=== PATIENT | female | born 1990 | race African-American/Black ===

== ENCOUNTER 2018-09-16 08:20 | Emergency (ER) | payer SELFPAY ==
[~2018-09-16] VITALS: Ht 157.5 cm; Wt 108.9 kg
[2018-09-16] MEDS ORDERED: KETOROLAC 60 MG/2 ML VIAL. IM ONE (08:45)
[2018-09-16] MEDS ORDERED: KETOROLAC 30 MG/ML VIAL. ONE (08:57)
--- NOTE | 2018-09-16 09:18 | PHYS DOC ---
Past History Past Medical History: No Pertinent History Past Surgical History: No Surgical History Alcohol Use: None Drug Use: None Adult General Chief Complaint Chief Complaint: MECHANICAL FALL HPI HPI Patient is a 28 year old female who presents with pinning of a fall and injury to right side of chest and lower extremity. Patient states she slipped on icy steps of her apartment yesterday and had a fall from 44 and states that head injury or loss of consciousness. Patient states she landed on right side of her body and complaining of pain in right lower chest wall and right knee with contusion of right thigh that getting worse today and rated her pain 9/10. Patient complaining of shortness of breath because of pain in her chest and denies fever and chills, , other injuries. Review of Systems Review of Systems Constitutional: Denies fever or chills [] Eyes: Denies change in visual acuity, redness, or eye pain [] HENT: Denies nasal congestion or sore throat [] Respiratory: Denies cough or shortness of breath [] Cardiovascular: No additional information not addressed in HPI [] GI: Denies abdominal pain, nausea, vomiting, bloody stools or diarrhea [] : Denies dysuria or hematuria [] Musculoskeletal: Denies back pain , reports joint pain [] Integument: Denies rash or skin lesions [] Neurologic: Denies headache, focal weakness or sensory changes [] Endocrine: Denies polyuria or polydipsia [] All other systems were reviewed and found to be within normal limits, except as documented in this note. Current Medications Current Medications Current Medications Medications (Trade) Dose Ordered Sig/[facility] Start Time Stop Time Status Last Admin Dose Admin Ketorolac Tromethamine (Toradol 30mg Vial) 30 mg STK-MED ONCE 09/16/18 08:57 09/16/18 08:59 DC Ketorolac Tromethamine (Toradol Im) 60 mg 1X ONCE 09/16/18 08:45 09/16/18 08:46 UNV Allergies Allergies Allergies Coded Allergies Type Severity Reaction Last Updated Verified No Known Drug Allergies 09/16/18 No Physical Exam Physical Exam Constitutional: Well developed, well nourished, mild distress, non-toxic appearance, morbidly obese. [] HENT: Normocephalic, atraumatic, bilateral external ears normal, oropharynx moist, no oral exudates, nose normal. [] Eyes: PERRLA, EOMI, conjunctiva normal, no discharge. [] Neck: Normal range of motion, no tenderness, supple, no stridor. [] Cardiovascular:Heart rate regular rhythm, no murmur [] Lungs & Thorax: Right lower lateral chest wall tenderness without deformity or crepitation, Bilateral breath sounds clear to auscultation [] Abdomen: Bowel sounds normal, soft, no tenderness, no masses, no pulsatile masses. [] Skin: Warm, dry, no erythema, no rash. [] Back: No tenderness, no CVA tenderness. [] Extremities: Small area of contusion of right eye without deformity , no tenderness, no cyanosis, no clubbing, ROM intact, no edema. [] Neurologic: Alert and oriented X 3, normal motor function, normal sensory function, no focal deficits noted. [] Psychologic: Affect anxious, judgement normal, mood normal. [] Current Patient Data Vital Signs Vital Signs Date Time Temp Pulse Resp B/P (MAP) Pulse Ox O2 Delivery O2 Flow Rate FiO2 09/16/18 08:30 98.3 74 24 99 Room Air EKG EKG [] Radiology/Procedures Radiology/Procedures [address] [place] [id number] IMAGING REPORT Signed PATIENT: TESHA ALCARAZ ACCOUNT: [id number] : 1990 LOCATION: ER AGE: 28 SEX: F EXAM STATUS: REG ER ORD. PHYSICIAN: ZACHARY JULIAN MD REASON: faLL PROCEDURE: KNEE RIGHT 3V EXAM: Right knee, 3 views. HISTORY: Pain. Fall. COMPARISON: None. FINDINGS: 2 views of the right knee are obtained. There is no fracture, dislocation or subluxation. There is a small bone island within the proximal tibia. There is no joint effusion. There is enthesopathy along the superior patella. IMPRESSION: No acute osseous finding. Electronically signed by: Ela Hooper MD (09/16/2018 9:19 AM) [facility] DICTATED AND SIGNED BY: ELA HOOPER MD DATE: 09/16/18 0919 CC: ZACHARY JULIAN MD; PCP,NO ~ [address] [address] IMAGING REPORT Signed PATIENT: TESHA ALCARAZ ACCOUNT: [id number] : 1990 LOCATION: ER AGE: 28 SEX: F EXAM STATUS: REG ER ORD. PHYSICIAN: ZACHARY JULIAN MD REASON: faLL PROCEDURE: RIBS RIGHT AND PA CHEST Rib series including frontal chest radiograph and 3 views right ribs. 09/16/2018 INDICATION: Right rib pain following fall FINDINGS: No pneumothorax or pleural effusion is seen. Heart size is normal. No focal infiltrate is seen. No displaced rib fractures or other acute osseous abnormalities are identified. IMPRESSION: No evidence of rib fracture or other acute cardiopulmonary process Electronically signed by: Yonis Bee MD (09/16/2018 9:24 AM) [id number] DICTATED AND SIGNED BY: YONIS BEE MD DATE: 09/16/18920 CC: ZACHARY JULIAN MD; PCP,NO ~ Course & Med Decision Making Course & Med Decision Making Pertinent Imaging studies reviewed. (See chart for details) discharge: I've spoken with the patient and/or caregivers. I've explained the patient's condition, diagnosis and treatment plan based on information available to me at this time. I've answered the patient's and/or caregivers questions and addressed any concerns. The patient and/or caregivers have a good understanding the patient's diagnosis, condition and treatment plan as can be expected at this point. Vital signs have been stabilized. The patient's condition is stable for discharge from the emergency department. The patient will pursue further outpatient evaluation with her primary care provider or other designated consulting physician as outlined in the discharge instructions. Patient and/or caregivers are agreeable to this plan of care and follow-up instructions have been explained in detail. The patient and/or caregivers have received these instructions in written format and expressed understanding of these discharge instructions. The patient and her caregivers are aware that if any significant change in condition or worsening of symptoms should prompt him to immediately return to this of the closest emergency department. If an emergent department is not readily available I would encourage him to call 911. Amy Disclaimer Amy Disclaimer This electronic medical record was generated, in whole or in part, using a voice recognition dictation system. Departure Departure: Impression: Primary Impression: Fall from stairs and steps due to ice and snow, initial encounter Additional Impressions: Chest wall contusion Contusion of right thigh Morbid obesity with BMI of 40.0-44.9, adult Tobacco abuse Tobacco abuse counseling Disposition: HOME, SELF-CARE (at 0939) Condition: IMPROVED Referrals: PCP,NO (PCP) Patient Instructions: Chest Contusion, Contusion, Fall Prevention and Home Safety, Smoking Cessation, Tips For Success Additional Instructions: Drink plenty of liquids Follow-up with your primary care physician in 3-5 days Return to ER if not getting better Apply ice on the affected area Scripts Naproxen (NAPROSYN) 500 Mg Tablet 500 MG PO BID for pain, #20 TAB Prov: ZACHARY JULIAN MD 09/16/18 Cyclobenzaprine Hcl (CYCLOBENZAPRINE HCL) 10 Mg Tablet 1 TAB PO TID for pain, #30 TAB Prov: ZACHARY JULIAN MD 09/16/18 Problem Qualifiers ZACHARY JULIAN MD Sep 16, 2018 09:18
--- NOTE | 2018-09-16 09:24 | RAD ---
EXAM: Right knee, 3 views. HISTORY: Pain. Fall. COMPARISON: None. FINDINGS: 2 views of the right knee are obtained. There is no fracture, dislocation or subluxation. There is a small bone island within the proximal tibia. There is no joint effusion. There is enthesopathy along the superior patella. IMPRESSION: No acute osseous finding. Electronically signed by: Ela Novak MD (09/16/2018 9:19 AM) [id number]
--- NOTE | 2018-09-16 09:29 | RAD ---
Rib series including frontal chest radiograph and 3 views right ribs. 09/16/2018 INDICATION: Right rib pain following fall FINDINGS: No pneumothorax or pleural effusion is seen. Heart size is normal. No focal infiltrate is seen. No displaced rib fractures or other acute osseous abnormalities are identified. IMPRESSION: No evidence of rib fracture or other acute cardiopulmonary process Electronically signed by: Yonis Addison MD (09/16/2018 9:24 AM) [id number]
[2018-09-16] MEDS ORDERED: NAPR-683 PO (09:42)
[2018-09-16] MEDS ORDERED: CYCL-331 PO (09:42)
[2018-09-16 09:53] VITALS: BP 110/71
== END 2018-09-16 09:55 | disposition home or self-care (01) ==
LOC: ER 08:20
DX: S20.211A Contusion of right front wall of thorax, initial encounter (principal); S70.11XA Contusion of right thigh, initial encounter; E66.01 Morbid (severe) obesity due to excess calories; Z68.41 Body mass index [BMI] 40.0-44.9, adult; Z72.0 Tobacco use; Z71.6 Tobacco abuse counseling; W00.1XXA Fall from stairs and steps due to ice and snow, initial encounter; Y93.89 Activity, other specified; Y92.89 Other specified places as the place of occurrence of the external cause; Y99.8 Other external cause status
CPT/HCPCS: 71101; 73562; 96372; 99283; J1885

== ENCOUNTER 2018-11-17 11:57 | Emergency (ER) | payer MEDICAID ==
[~2018-11-17] VITALS: Ht 157.5 cm; Wt 108.9 kg
[~2018-11-17 11:57] MED LIST: CYCL-331 PO; NAPR-683 PO
[2018-11-17 12:01] VITALS: BP 144/95
[2018-11-17] MEDS ORDERED: CYCLOBENZAPRINE 10 MG TABLET. PO ONE (12:45)
[2018-11-17] MEDS ORDERED: HYDROcodone/APAP 5/325MG 1 TAB TABLET PO ONE (12:45)
[2018-11-17] MEDS ORDERED: METH4TAB2 PO (12:57)
[2018-11-17] MEDS ORDERED: MUPI22OI2 TP (12:57)
[2018-11-17] MEDS ORDERED: HYDR-3165 PO (12:57)
[2018-11-17] MEDS ORDERED: CYCL-331 PO (12:57)
--- NOTE | 2018-11-17 12:57 | PHYS DOC ---
Past History Past Medical History: No Pertinent History Past Surgical History: No Surgical History Smoking: Cigarettes Alcohol Use: None Drug Use: None Adult General Chief Complaint Chief Complaint: SKIN PROBLEM HPI HPI Patient is a 28 year old female who presents with leaning of a skin lesion and right ribs pain. Patient complaining of blister- like rash in her palm of right hand for the last 3 weeks that changing to a scar lesion associated with pain and itching. Patient states she feels numbness of her hand because of pain and holding her hand down. Patient states she has some rash on upper thigh and groin area that resolved after applying eczema medication belonged to her daughter. Patient denies fever or chills, shortness of breath, history of the same lesion. Patient also complaining of right ribs pain after she had a fall in August and seen in this emergency room as a constant pain that getting worse with movement. She denies shortness of breath and cough. Review of Systems Review of Systems Constitutional: Denies fever or chills [] Eyes: Denies change in visual acuity, redness, or eye pain [] HENT: Denies nasal congestion or sore throat [] Respiratory: Denies cough or shortness of breath [] Cardiovascular: No additional information not addressed in HPI [] GI: Denies abdominal pain, nausea, vomiting, bloody stools or diarrhea [] : Denies dysuria or hematuria [] Musculoskeletal: Denies back pain or joint pain [] Integument: Reports rash on his skin lesions Neurologic: Denies headache, focal weakness or sensory changes [] Endocrine: Denies polyuria or polydipsia [] All other systems were reviewed and found to be within normal limits, except as documented in this note. Current Medications Current Medications Current Medications Medications (Trade) Dose Ordered Sig/[facility] Start Time Stop Time Status Last Admin Dose Admin Acetaminophen/ Hydrocodone Bitart (Lortab 5/325) 1 tab 1X ONCE 11/17/18 12:45 11/17/18 12:46 DC 11/17/18 12:41 1 TAB Cyclobenzaprine HCl (Flexeril) 10 mg 1X ONCE 11/17/18 12:45 11/17/18 12:46 DC 11/17/18 12:41 10 MG Allergies Allergies Allergies Coded Allergies Type Severity Reaction Last Updated Verified No Known Drug Allergies 09/16/18 No Physical Exam Physical Exam Constitutional: Well nourished, no acute distress, non-toxic appearance, morbidly obese. [] HENT: Normocephalic, atraumatic Eyes: PERRLA, EOMI, conjunctiva normal, no discharge. [] Neck: Normal range of motion, no tenderness, supple, no stridor. [] Cardiovascular:Heart rate regular rhythm, no murmur [] Lungs & Thorax: Bilateral breath sounds clear to auscultation [] Skin: Warm, dry, no erythema, small pinpoint lesion in palm of right hand and 2 areas of discoloration of the skin without infection in right palm] Back: No tenderness, no CVA tenderness. [] Extremities: No tenderness, no cyanosis, no clubbing, ROM intact, no edema. [] Neurologic: Alert and oriented X 3, normal motor function, normal sensory function, no focal deficits noted. [] Psychologic: Affect anxious, judgement normal, mood normal. [] Current Patient Data Vital Signs Vital Signs Date Time Temp Pulse Resp B/P (MAP) Pulse Ox O2 Delivery O2 Flow Rate FiO2 11/17/18 12:41 16 98 11/17/18 12:01 98.6 73 96.0 Lab Results Laboratory Tests Test 11/17/18 12:23 Glucose (Fingerstick) 112 mg/dL (70-99) H EKG EKG [] Radiology/Procedures Radiology/Procedures [] Course & Med Decision Making Course & Med Decision Making Pertinent Labs reviewed. (See chart for details) discharge: I've spoken with the patient and/or caregivers. I've explained the patient's condition, diagnosis and treatment plan based on information available to me at this time. I've answered the patient's and/or caregivers questions and addressed any concerns. The patient and/or caregivers have a good understanding the patient's diagnosis, condition and treatment plan as can be expected at this point. Vital signs have been stabilized. The patient's condition is stable for discharge from the emergency department. The patient will pursue further outpatient evaluation with her primary care provider or other designated consulting physician as outlined in the discharge instructions. Patient and/or caregivers are agreeable to this plan of care and follow-up instructions have been explained in detail. The patient and/or caregivers have received these instructions in written format and expressed understanding of these discharge instructions. The patient and her caregivers are aware that if any significant change in condition or worsening of symptoms should prompt him to immediately return to this of the closest emergency department. If an emergent department is not readily available I would encourage him to call 911. Amy Disclaimer Amy Disclaimer This electronic medical record was generated, in whole or in part, using a voice recognition dictation system. Departure Departure: Impression: Primary Impression: Rash/skin eruption Additional Impressions: Rib pain on right side Tobacco abuse Tobacco abuse counseling Disposition: HOME, SELF-CARE (at 1252) Condition: STABLE Referrals: PCP,NO (PCP) Patient Instructions: Musculoskeletal Pain, Rash, Smoking Cessation, Tips For Success Additional Instructions: Drink plenty of liquids Follow-up with your primary care physician in 3-5 days Return to ER if not getting better Scripts Mupirocin (MUPIROCIN) 22 Gm Oint...g. 1 SHABBIR TP TID for rash, #22 GM Prov: ZACHARY JULIAN MD 11/17/18 Hydrocodone Bit/Acetaminophen (NORCO 5-325 TABLET) 1 Each Tablet 1 TAB PO PRN Q6HRS PRN for PAIN, #14 TAB 0 Refills Prov: ZACHARY JULIAN MD 11/17/18 Methylprednisolone (MEDROL) 4 Mg Tab.ds.pk 1 PKG PO UD for inflammation, #1 PKG Prov: ZACHARY JULIAN MD 11/17/18 Cyclobenzaprine Hcl (CYCLOBENZAPRINE HCL) 10 Mg Tablet 1 TAB PO TID for pain, #30 TAB Prov: ZACHARY JULIAN MD 11/17/18 Problem Qualifiers ZACHARY JULIAN MD Nov 17, 2018 12:57
== END 2018-11-17 13:05 | disposition home or self-care (01) ==
LOC: ER 11:57
DX: R07.81 Pleurodynia (principal); L98.8 Other specified disorders of the skin and subcutaneous tissue; F17.210 Nicotine dependence, cigarettes, uncomplicated; Z71.6 Tobacco abuse counseling
CPT/HCPCS: 82947; 99283

== ENCOUNTER 2018-12-08 12:57 | Emergency (ER) | payer SELFPAY ==
[~2018-12-08] VITALS: Ht 157.5 cm; Wt 108.9 kg
[~2018-12-08 12:57] MED LIST changes: +HYDR-3165 PO; +METH4TAB2 PO; +MUPI22OI2 TP
[2018-12-08] MEDS ORDERED: PRED50TA PO (13:22)
[2018-12-08] MEDS ORDERED: HYDR25TA PO (13:22)
[2018-12-08] MEDS ORDERED: MELO7.5T29 PO (13:22)
--- NOTE | 2018-12-08 13:22 | PHYS DOC ---
Past History Past Medical History: No Pertinent History Past Surgical History: No Surgical History Smoking: Cigarettes Alcohol Use: None Drug Use: None Adult General Chief Complaint Chief Complaint: SKIN RASH/ABSCESS HPI HPI Patient is a 28-year-old female presents with right hand rash for the past 3 weeks. She was seen previously and given pain medicine and a cream. She has not followed up with anyone since being discharged. She is out of her pain medicine. Movement makes the discomfort worse. She is uncertain as to what triggered the rash. Pain is moderate to severe[] Review of Systems Review of Systems Constitutional: Denies fever or chills [] Eyes: Denies change in visual acuity, redness, or eye pain [] HENT: Denies nasal congestion or sore throat [] Respiratory: Denies cough or shortness of breath [] Cardiovascular: No chest pain or palpitations[] GI: Denies abdominal pain, nausea, vomiting, bloody stools or diarrhea [] : Denies dysuria or hematuria [] Musculoskeletal: Denies back pain or joint pain [] Integument: See history of present illness[] Neurologic: Denies headache, focal weakness or sensory changes [] Endocrine: Denies polyuria or polydipsia [] All other systems were reviewed and found to be within normal limits, except as documented in this note. Allergies Allergies Allergies Coded Allergies Type Severity Reaction Last Updated Verified No Known Drug Allergies 09/16/18 No Physical Exam Physical Exam Constitutional: Well developed, well nourished, no acute distress, non-toxic appearance. [] HENT: Normocephalic, atraumatic, bilateral external ears normal, oropharynx moist, no oral exudates, nose normal. [] Eyes: PERRLA, EOMI, conjunctiva normal, no discharge. [] Neck: Normal range of motion, no tenderness, supple, no stridor. [] Cardiovascular:Heart rate regular rhythm, no murmur [] Lungs & Thorax: Bilateral breath sounds clear to auscultation [] Abdomen: Not examined. [] Skin: Warm, dry, a 3 cm diameter plaque on thenar eminence of her right hand. Decreased active range of motion due to discomfort, she is distal neurovascularly intact. She has what appears to be a minor paronychia without drainable abscess on her middle finger of the right hand as well. Patient is distal neurovascularly intact.. [] Back: No tenderness, no CVA tenderness. [] Extremities: No tenderness, no cyanosis, no clubbing, ROM intact, no edema. [] Neurologic: Alert and oriented X 3, normal motor function, normal sensory function, no focal deficits noted. [] Psychologic: Affect normal, judgement normal, mood normal. [] Current Patient Data Vital Signs Vital Signs Date Time Temp Pulse Resp B/P (MAP) Pulse Ox O2 Delivery O2 Flow Rate FiO2 12/08/18 13:07 98.1 84 16 96 Room Air EKG EKG [] Radiology/Procedures Radiology/Procedures [] Course & Med Decision Making Course & Med Decision Making Pertinent Labs and Imaging studies reviewed. (See chart for details) [] Dragon Disclaimer Dragon Disclaimer This electronic medical record was generated, in whole or in part, using a voice recognition dictation system. Departure Departure: Impression: Primary Impression: Rash and nonspecific skin eruption Additional Impression: Paronychia Disposition: 01 HOME, SELF-CARE Condition: IMPROVED Referrals: PCPORLY (PCP) Patient Instructions: Paronychia, Rash Additional Instructions: Follow-up with your regular doctor in 2 days. If you do not have a regular doctor list of local primary care physicians will be provided for you. Take medication as prescribed. Return to the ER if you develop a fever, difficulty breathing, or any other concerns. Scripts Prednisone (PREDNISONE) 50 Mg Tablet 1 TAB PO DAILY for INFLAMMATION, #5 TAB Prov: NARCISA DEL CASTILLO DO 12/08/18 Meloxicam (MELOXICAM) 7.5 Mg Tablet 7.5 MG PO DAILY for PAIN, #20 TAB Prov: NARCISA DEL CASTILLO DO 12/08/18 Hydroxyzine Hcl (HYDROXYZINE HCL) 25 Mg Tablet 1 TAB PO TID for rash, #30 TAB Prov: NARCISA DEL CASTILLO DO 12/08/18 Problem Qualifiers NARCISA DEL CASTILLO DO Dec 08, 2018 13:22
== END 2018-12-08 13:40 | disposition home or self-care (01) ==
LOC: ER 12:57
DX: L03.011 Cellulitis of right finger (principal); F17.210 Nicotine dependence, cigarettes, uncomplicated
CPT/HCPCS: 99283

== ENCOUNTER 2020-10-13 11:06 | Emergency (ER) | payer MEDICAID ==
[~2020-10-13] VITALS: Ht 157.5 cm; Wt 91.0 kg
[~2020-10-13 11:06] MED LIST changes: +HYDR25TA PO; +MELO7.5T29 PO; +PRED50TA PO
[2020-10-13 11:24] VITALS: BP 147/92
[2020-10-13] MEDS ORDERED: ACETAMINOPHEN 500 MG TABLET PO ONE (11:30)
[2020-10-13] MEDS ORDERED: IBUPROFEN 600 MG TABLET. PO ONE (11:30)
--- NOTE | 2020-10-13 12:29 | RAD ---
ADDENDUM #1 Addendum: Correction to original report. This is a right knee examination and not left knee. Electronically signed by: Shahzad Das MD (10/13/2020 1:16 PM) [id number] ORIGINAL REPORT INDICATION: Reason: fall / Spl. Instructions: waiting on test / History: COMPARISON: None. IMPRESSION: Left knee: 3 views obtained. Mild degenerative changes with early osteophyte formation at the medial and lateral compartment. Small joint effusion is suspected. No dislocation. No definite acute fractur e line. Electronically signed by: Shahzad Das MD (10/13/2020 12:27 PM) [id number]
[2020-10-13] MEDS ORDERED: NAPR-683 PO (12:42)
--- NOTE | 2020-10-13 12:42 | PHYS DOC ---
Past History Past Medical History: No Pertinent History Past Surgical History: No Surgical History Smoking: Cigarettes Alcohol Use: None Drug Use: None Adult General Chief Complaint Chief Complaint: LOWEREXTREMITY INJURY HPI HPI Patient is a 30f presenting the emergency department complaint of new onset of right-sided knee pain. Patient states that over the last 3 days she developed worsening sensation of pain and swelling of the right lateral knee. Primarily notes some swelling and erythema over the lateral portion of it. Patient notes that she has a number of ligamentous injuries over the few years requiring surgical repair. Denies any recent fall or injury. Patient states this happened when she got up out of bed 3 days ago. Denies any fever, chills, nausea vomiting. Review of Systems Review of Systems Constitutional: Denies fever or chills [] Eyes: Denies change in visual acuity, redness, or eye pain [] HENT: Denies nasal congestion or sore throat [] Respiratory: Denies cough or shortness of breath [] Cardiovascular: No additional information not addressed in HPI [] GI: Denies abdominal pain, nausea, vomiting, bloody stools or diarrhea [] : Denies dysuria or hematuria [] Musculoskeletal: Denies back pain or joint pain [] Integument: Denies rash or skin lesions [] Neurologic: Denies headache, focal weakness or sensory changes [] Endocrine: Denies polyuria or polydipsia [] All other systems were reviewed and found to be within normal limits, except as documented in this note. Current Medications Current Medications Current Medications Medications (Trade) Dose Ordered Sig/[facility] Start Time Stop Time Status Last Admin Dose Admin Acetaminophen (Tylenol) 1,000 mg 1X ONCE 10/13/20 11:30 10/13/20 11:38 DC 10/13/20 11:30 1,000 MG Ibuprofen (Motrin) 600 mg 1X ONCE 10/13/20 11:30 10/13/20 11:38 DC 10/13/20 11:30 600 MG Allergies Allergies Allergies Coded Allergies Type Severity Reaction Last Updated Verified No Known Drug Allergies 09/16/18 No Physical Exam Physical Exam Constitutional: Well developed, well nourished, no acute distress, non-toxic appearance. [] HENT: Normocephalic, atraumatic, bilateral external ears normal, oropharynx moist, no oral exudates, nose normal. [] Eyes: PERRLA, EOMI, conjunctiva normal, no discharge. [] Neck: Normal range of motion, no tenderness, supple, no stridor. [] Cardiovascular:Heart rate regular rhythm, no murmur [] Lungs & Thorax: Bilateral breath sounds clear to auscultation [] Abdomen: Bowel sounds normal, soft, no tenderness, no masses, no pulsatile masses. [] Skin: Warm, dry, no erythema, no rash. [] Back: No tenderness, no CVA tenderness. [] Extremities: Moderate right lateral knee tenderness at the collateral ligament. Negative Oralia or drawer sign, no cyanosis, no clubbing, ROM intact, no edema. [] Neurologic: Alert and oriented X 3, normal motor function, normal sensory function, no focal deficits noted. [] Psychologic: Affect normal, judgement normal, mood normal. [] Current Patient Data Vital Signs Vital Signs Date Time Temp Pulse Resp B/P (MAP) Pulse Ox O2 Delivery O2 Flow Rate FiO2 10/13/20 11:24 76 18 147/92 (110) 98 Lab Results Laboratory Tests Test 10/13/20 12:10 POC Urine HCG, Qualitative hcg negative (Negative) EKG EKG [] Radiology/Procedures Radiology/Procedures [] Heart Score Risk Factors: Risk Factors: DM, Current or recent (<one month) smoker, HTN, HLP, family history of CAD, obesity. Risk Scores: Risk Factors: DM, Current or recent (<one month) smoker, HTN, HLP, family hi story of CAD, obesity. Course & Med Decision Making Course & Med Decision Making Pertinent Labs and Imaging studies reviewed. (See chart for details) 30F presented emergency department with lateral knee pain and tenderness most consistent with an acute tendinitis. Patient has normal active and passive range of motion making septic arthritis extremely unlikely. At this time will obtain an x-ray to make sure there is no significant change the patient symptomatically. Anticipate the patient will benefit from [employer] wrap, crutches and surgery follow-up [place] Disclaimer Dragon Disclaimer This electronic medical record was generated, in whole or in part, using a voice recognition dictation system. Departure Departure: Impression: Primary Impression: Tendinitis of right knee Disposition: 01 DC HOME SELF CARE/HOMELESS Condition: GOOD Referrals: GEORGIE LOW MD Patient Instructions: Knee Pain Additional Instructions: EMERGENCY DEPARTMENT GENERAL DISCHARGE INSTRUCTIONS Thank you for coming to [facility] (ED) today and trusting us with you care. We trust that you had a positive experience in our Emergency Department. If you wish to speak to the department management, you may call the Director at [phone]. YOUR FOLLOW UP INSTRUCTIONS ARE FOLLOWS: 1. Do you have a private Doctor? If you do not have a private doctor, please ask for a resource list of physicians or clinics that may be able to assist you with follow up care. 2. The Emergency Physicain has interpreted your x-rays. The X-Ray specialist will also review them. If there is a change in the findings, you will be notified in 48 hours when at all possible. 3. A lab test or culture has been done, your results will be reviewed and you will be notified if you need a change in treatment. ADDITIONAL INSTRUCTIONS AND INFORMATION: 1. Your care today has been supervised by a physician who is specially trained in emergency care. Many problems require more than one evaluation for a complete diagnosis and treatment. We recommend that you schedule your follow up appointment as recommended to ensure complete treatment of you illness or injury. If you are unable to obtain follow up care and continue to have a problem, or if your condition worsens, we recommend that you return to the ED. 2. We are not able to safely determine your condition over the phone nor are we able to give sound medical advice over the phone. For these safety reasons, if you call for medical advice we will ask you to come to the ED for further evaluation. 3. If you have any questions regarding these discharge instructions please call the ED at [phone]. SAFETY INFORMATION: In the interest of safety, wellness, and injury prevention; we encourage you to wear your sealbelt, if you smoke; quite smoking, and we encourage family to use a protective helmet for bicycling and other sporting events that present an increased risk for head injury. IF YOUR SYMPTOMS WORSEN OR NEW SYMPTOMS DEVELOP, OR YOU HAVE CONCERNS ABOUT YOUR CONDITION; OR IF YOUR CONDITION WORSENS WHILE YOU ARE WAITING FOR YOUR FOLLOW UP APPOINTMENT; EITHER CONTACT YOUR PRIMARY CARE DOCTOR, THE PHYSICIAN WHOSE NAME AND NUMBER YOU WERE GIVEN, OR RETURN TO THE ED IMMEDIATELY. Scripts Naproxen (NAPROSYN) 500 Mg Tablet 1 TAB PO BID for pain for 30 Days, #60 TAB 0 Refills Prov: SANTOS CHEUNG MD 10/13/20 SANTOS CHEUNG MD Oct 13, 2020 12:42
== END 2020-10-13 12:59 | disposition home or self-care (01) ==
LOC: ER 11:06
DX: M76.9 Unspecified enthesopathy, lower limb, excluding foot (principal); F17.210 Nicotine dependence, cigarettes, uncomplicated
CPT/HCPCS: 73562; 81025; 99283